=== PATIENT | male | born 1955 | race Caucasian/White ===

== ENCOUNTER 2019-03-14 01:42 | Observation (INO) | payer OTHER, SELFPAY ==
[2019-03-14] VITALS (28 sets, daily range): BP systolic 103–164; BP diastolic 47–96; PULSE 61–91; RESP 13–27; TEMP 36.1–37.2; O2SAT 95–98
[2019-03-14] MEDS: Pantoprazole 40 MG VIAL 80 MG IVP (01:53)
[2019-03-14] MEDS: Normal Saline 1,000 ML 1000 ML IV (01:53)
--- NOTE | 2019-03-14 01:56 | W.ED.GENAD ---
Discharge Plan Disposition Patient Disposition: [facility] INPATIENT Condition: Stable Discharge Details Chief Complaint: GI Bleed Clinical Impression: Acute upper GI bleed Primary Care Provider: Kaylynn,Local ED Provider: Dmitriy Bradshaw Home Meds and New Rx's Prescriptions: No Action metformin 500 mg Tablet 500 mg PO DIRECTED RF: 0 metoprolol succinate 200 mg Tablet Extended Release 24 Hr 200 mg PO DAILY RF: 0 aspirin [Aspir-81] 81 mg Tablet,Delayed Release (Dr/Ec) 81 mg PO DAILY RF: 0 simvastatin 20 mg Tablet 20 mg PO DAILY RF: 0 metformin 1,000 mg Tablet 1,000 mg PO BID RF: 0 valsartan 160 mg Tablet 160 mg PO DAILY RF: 0 Januvia 100 mg Tablet 100 mg PO DAILY RF: 0 Lantus Solostar U-100 Insulin 100 unit/mL (3 mL) Insulin Pen 25 unit SUBCUT DAILY RF: 0 Medical Decision Making 63 yo male with hx of DM, htn, hld, on aspirin, who comes in with chief complaint of vomit of bright red blood. Denies any chest pain, abdominal pain, shortness of breath and no prior hx. No prior hx of known varices and has no stigmata on exam of liver disease. States that he woke up with vomit of blood x2 and as of now has no nausea. Will obtain lab work and monitor and administer ppi pt remains stable, HR of 70 bp 120/72 and labs reassuring. Spoke with Dr. Petersen who accepts for admission to the floor. Pt has not had any vomit of blood here. Differential Diagnosis Differential Diagnosis: varices, gastritis, ulcer Lab Data Lab results reviewed: Yes I reviewed the patient's lab results. HPI General Mode of arrival: EMS. Date/Time Provider Initiated Documentation: 03/14/19 01:51. Limitations to Documentation: no limitations. Information obtained by: patient. History of Present Illness 63 year old M presents to the emergency department with the chief complaint of hematemesis, described as moderate, Patient started experiencing this hour(s) (2) and it has been now resolved. No relieving factors improve symptom(s), No exacerbating factors reported . Patient notes no other symptoms.. Patient did receive the following treatments prior to arrival, none Related Data Home Medications Medication Instructions Recorded Confirmed aspirin [Aspir-81] 81 mg PO DAILY 03/14/19 03/14/19 insulin glargine [Lantus Solostar 25 unit SUBCUT DAILY 03/14/19 03/14/19 U-100 Insulin] metformin 1,000 mg PO BID 03/14/19 03/14/19 metformin 500 mg PO DIRECTED 03/14/19 03/14/19 metoprolol succinate 200 mg PO DAILY 03/14/19 03/14/19 simvastatin 20 mg PO DAILY 03/14/19 03/14/19 sitagliptin [Januvia] 100 mg PO DAILY 03/14/19 03/14/19 valsartan 160 mg PO DAILY 03/14/19 03/14/19 Allergies Allergy/AdvReac Type Severity Reaction Status Date / Time No Known Allergies Allergy Unverified 03/14/19 01:45 General Stated Complaint: GI Bleed KASIA: 2 Review of Systems All systems reviewed & are unremarkable except as noted in HPI and below Constitutional Constitutional: Denies chills, Denies fever(s) and Denies weakness Cardiovascular Cardiovascular: Denies chest pain and Denies dyspnea Respiratory Respiratory: Denies cough and Denies dyspnea Gastrointestinal Gastrointestinal: Denies abdominal pain, Denies nausea and Denies vomiting Musculoskeletal Musculoskeletal: Denies joint swelling Neurologic Neurologic: Denies weakness PFSH Social History Smoking/Tobacco Use Status: Former Tobacco Use Alcohol Intake: former Drug use: Never Substance use type: does not use Do you feel safe at home: Yes Do you feel safe in your relationship?: Yes Exam Const General: no acute distress Orientation: alert HENMT Head: normal to inspection Ears: external ears normal General nose exam: external nose normal Mouth: moist mucous membranes Eyes General: appearance normal, both eyes and all related structures Neck Neck: normal visual inspection Resp Effort & Inspection: normal respiratory effort and able to speak in complete sentences Cardio Rate: regular rate GI Palpation: soft Skin General skin exam: no rashes or lesions noted Neuro General: alert and oriented x3 Extrem General: normal to inspection Psych Mental Status: mental status grossly normal Course Vital Signs Vital signs: Vital Signs Temperature 36.7 C 03/14/19 01:42 Pulse 66 03/14/19 01:42 Respiratory Rate 16 03/14/19 01:42 Pulse Oximetry 97 03/14/19 01:42 Temperature 36.7 C 03/14/19 01:42 Temperature Source Temporal Artery Scan 03/14/19 01:42 Pulse 66 03/14/19 01:42 Respiratory Rate 16 03/14/19 01:42 Respiratory Effort Non-Labored 03/14/19 01:42 Blood Pressure Position Sitting 03/14/19 01:42 Pulse Oximetry 97 03/14/19 01:42 Oxygen Delivery Method Room Air 03/14/19 01:42 Oxygen Flow Rate 0 03/14/19 01:42 Pain Level 0 03/14/19 01:42
[2019-03-14 02:00] LABS: Abs Immature Grans 0.02 k/cumm (0.0-0.09); Absolute Basophil Count 0.02 k/cumm (0.0-0.2); Absolute Eosinophil Count 0.17 k/cumm (0.0-0.7); Absolute Lymphocyte Count 1.31 k/cumm (1.2-3.4); Absolute Monocyte Count 0.54 k/cumm (0.11-0.7); Basophils % 0.3; Eosinophils % 2.7; HCT 37.3 % (40.0-50.0); HGB 12.7 g/dL (13.5-17.5); Immature Grans % 0.3; Lymphocytes % 20.9; Mean Corpuscular Hemoglobin 31.4 pg (27.0-33.0); Mean Corpuscular Volume 92.1 fL (80-95); Mean Platelet Volume 12.5 fL (8.0-11.0); Monocytes % 8.6; Neutrophils % 67.2; Platelet Count 102 x1000/uL (130-400); RBC 4.05 m/cumm (4.50-6.00); White Blood Cell Count 6.26 k/cumm (4.4-10.8)
[2019-03-14] MEDS: Normal Saline 100 ML 200 ML (02:05)
[2019-03-14 02:17] LABS: INR 1.2 (0.9-1.1); PTT Activated 23.1 sec (21.0-31.4); Prothrombin Time 12.3 sec (9.3-11.0)
[2019-03-14 02:19] LABS: ALT 35 U/L (16-63); AST 31 U/L (15-37); Alkaline Phosphatase 180 U/L (46-116); BUN 25 mg/dL (7-18); Bilirubin, Direct 0.13 mg/dL (0.00-0.20); Bilirubin, Total 0.4 mg/dL (0.2-1.0); CREATININE 1.21 mg/dL (0.70-1.30); Calcium 8.3 mg/dL (8.5-10.1); Chloride 105 mmol/L (98-107); ETHANOL BLOOD < 3.0 mg/dL (<3); Glucose 242 mg/dL (74-106); Lipase 378 U/L (73-393); Potassium 4.4 mmol/L (3.5-5.1); Sodium 141 mmol/L (136-145); Total Protein 6.8 g/dL (6.4-8.2)
[2019-03-14] MEDS: Normal Saline 1,000 ML 150 ML IV ×2 (03:36→10:34)
[2019-03-14] MEDS: Normal Saline Flush 10 ML SYR IVP ×2 (03:36→09:19)
--- NOTE | 2019-03-14 05:42 | W.PM.HP.N ---
Date of service: 03/14/19 Time of Service: 05:42 Assessment and Plan Assessment and plan (1) Upper GI bleed: Status: Acute Assessment and plan: Upper GI bleed. ASA/NSAIDs likely culprit. At this point patient appears hemodynamically stable. Will continue to monitor clinically, maintain off NSAIDs, continue PPI. Will need EGD but can be done as outpatient if remains stable; if deteriorates will do more urgently. I do note slight elevation in INR (doubtfully playing any role here) along with low albumin, suggesting degree of synthetic dysfunction. This could be worked up further. Will hold diabetic meds until taking PO. History of Present Illness History of Present Illness Chief Complaint: hematemesis Narrative: 63 male on ASA prophylaxis and also started taking Advill 200 qid about one mon th ago for chronic leg pain -- comes in with several episodes of painless hemetemesis last night, each preceded by nausea. Hematocrit 37 (no priors), platelet 102 and INR 1.2. Given PPI, placed NPO. No further episodes since. At present denises nausea or nabdominal pain. No melena. no EtOH. Review of Systems All systems reviewed & are unremarkable except as noted in HPI and below PFSH Social History Smoking/Tobacco Use Status: Former Tobacco Use Alcohol Intake: former Drug use: Never Substance use type: does not use Do you feel safe at home: Yes Do you feel safe in your relationship?: Yes Meds Home Medications and Allergies Home Medications Medication Instructions Recorded Confirmed Type aspirin [Aspir-81] 81 mg PO DAILY 03/14/19 03/14/19 History insulin glargine [Lantus Solostar 25 unit SUBCUT DAILY 03/14/19 03/14/19 History U-100 Insulin] metformin 1,000 mg PO BID 03/14/19 03/14/19 History metformin 500 mg PO DIRECTED 03/14/19 03/14/19 History metoprolol succinate 200 mg PO DAILY 03/14/19 03/14/19 History simvastatin 20 mg PO DAILY 03/14/19 03/14/19 History sitagliptin [Januvia] 100 mg PO DAILY 03/14/19 03/14/19 History valsartan 160 mg PO DAILY 03/14/19 03/14/19 History Allergies Allergy/AdvReac Type Severity Reaction Status Date / Time No Known Allergies Allergy Unverified 03/14/19 01:45 Exam Narrative Exam Narrative: 114/64, 70, 20, 36.1. HEENT AT/NC; neck supple; lungs clear; heart RRR; abdomen soft and NT; /rectal deferred; extremities trace pedal edema; neuro Ox3, moves all 4s. Results Labs Result diagrams: 03/14/19 01:45 03/14/19 01:45 Labs: Laboratory Results - last 24 hr 03/14/19 03/14/19 03/14/19 01:45 01:45 01:45 WBC 6.26 RBC 4.05 L Hgb 12.7 L Hct 37.3 L MCV 92.1 MCH 31.4 MCHC 34.0 RDW 14.0 Plt Count 102 L MPV 12.5 H Immature Gran % 0.3 Neutrophils % 67.2 Lymphocytes % 20.9 Monocytes % 8.6 Eosinophils % 2.7 Basophils % 0.3 Absolute Neutrophils 4.20 Absolute Lymphocytes 1.31 Absolute Monocytes 0.54 Absolute Eosinophils 0.17 Absolute Basophils 0.02 PT INR APTT Sodium 141 Potassium 4.4 Chloride 105 Carbon Dioxide 32.0 Anion Gap 4.0 BUN 25 H Creatinine 1.21 Estimated GFR/1.73 m2 >= 60.00 Glucose 242 H Lactate 1.0 Calcium 8.3 L Total Bilirubin 0.4 Conjugated Bilirubin 0.13 AST 31 ALT 35 Alkaline Phosphatase 180 H Total Protein 6.8 Albumin 3.0 L Lipase 378 Ethyl Alcohol < 3.0 Patient ABO/Rh Antibody Screen 03/14/19 03/14/19 01:45 01:45 WBC RBC Hgb Hct MCV MCH MCHC RDW Plt Count MPV Immature Gran % Neutrophils % Lymphocytes % Monocytes % Eosinophils % Basophils % Absolute Neutrophils Absolute Lymphocytes Absolute Monocytes Absolute Eosinophils Absolute Basophils PT 12.3 H INR 1.2 H APTT 23.1 Sodium Potassium Chloride Carbon Dioxide Anion Gap BUN Creatinine Estimated GFR/1.73 m2 Glucose Lactate Calcium Total Bilirubin Conjugated Bilirubin AST ALT Alkaline Phosphatase Total Protein Albumin Lipase Ethyl Alcohol Patient ABO/Rh O Negative Antibody Screen Negative Last Vital Signs Temp 36.1 C L 03/14/19 03:43 Pulse 70 03/14/19 03:43 Resp 20 03/14/19 03:43 BP 114/64 03/14/19 03:43 Pulse Ox 95 03/14/19 03:43
[2019-03-14 07:32] LABS: Abs Immature Grans 0.01 k/cumm (0.0-0.09); Absolute Basophil Count 0.01 k/cumm (0.0-0.2); Absolute Eosinophil Count 0.06 k/cumm (0.0-0.7); Absolute Lymphocyte Count 0.85 k/cumm (1.2-3.4); Absolute Monocyte Count 0.32 k/cumm (0.11-0.7); Absolute Neutrophil Count 4.05 k/cumm (1.2-6.7); Basophils % 0.2; Eosinophils % 1.1; HCT 34.2 % (40.0-50.0); HGB 11.3 g/dL (13.5-17.5); Immature Grans % 0.2; Mean Corpuscular Hemoglobin 30.6 pg (27.0-33.0); Mean Corpuscular Volume 92.7 fL (80-95); Mean Platelet Volume 13.2 fL (8.0-11.0); Neutrophils % 76.5; RBC 3.69 m/cumm (4.50-6.00)
[2019-03-14 07:48] LABS: Diff Comment Diff Reviewed; Platelet Count 96 x1000/uL (130-400); RBC Morphology Normal
[2019-03-14] MEDS: Metoprolol CR 100 MG TABCR 200 MG PO (09:20)
[2019-03-14] MEDS: Pantoprazole 40 MG VIAL IVP (09:20)
[2019-03-14] MEDS: Simvastatin 20 MG TAB PO (09:20)
--- NOTE | 2019-03-14 11:09 | INITIAL_ITS ---
- If Service Date Differs Date of service: 03/14/19 Time of Service: 11:09 Care Management Initial Assess REASON FOR HOSPITALIZATION:: Upper GI Bleed PAST MEDICAL HISTORY/PAST SURGICAL HISTORY:: No medical history noted due to patient not being local. PREVIOUS FUNCTIONAL STATUS/SOCIAL/FAMILY SUPPORTS:: Marco A lives in [place], [place] with two friends who adopted him after his . 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 He is planning on building a house in [facility] for [place] term, as he is originally from the area. He enjoys snowmobiling and is hoping for more snow this winter. His friends have a camp at [facility] where they stay weekends and holidays. He is independent at baseline. CURRENT FUNCTIONAL STATUS:: Marco A was sitting up in bed when CM met with him. He was pleasant and cheerful in conversation. He stated that he was feeling much better and was wondering if he would have to stay another night. Per MD, he will be monitored overnight and may discharge home tomorrow if he remains stable. CM will continue to follow. ADVANCE DIRECTIVES:: None on file. Has patient been provided with information about the portal?: No Did the patient sign up for the portal?: No CODE STATUS:: Full Code INSURANCE COVERAGE / FINANCIAL ISSUES:: [facility] CURRENT HOME/COMMUNITY SERVICES/EQUIPMENT:: Marco A currently has no community services or equipment. PRIMARY CARE PHYSICIAN:: No local PCP POTENTIAL DISCHARGE NEEDS:: Evaluation for further needs, follow up appointments PATIENT/FAMILY EDUCATION NEEDS:: Review discharge instructions regarding medications, discussion of self care needs including Ask Me Three ANTICIPATED BARRIERS TO DISCHARGE:: None identified at this time. TRANSPORTATION:: Marco A's friend, Malinda will drive him home via private vehicle when ready. PLAN:: Anticipate Marco A will return home when medically cleared with no additional services. His friend will drive him home via private vehicle. He will follow up with his local PCP, as recommended. CM will continue to follow.
[2019-03-14 15:21] LABS: HCT 34.1 % (40.0-50.0); HGB 11.4 g/dL (13.5-17.5)
--- NOTE | 2019-03-14 18:15 | W.PM.PROGNOT ---
Date of Service Date of service: 03/14/19 Time of Service: 18:15 Assessment and Plan Assessment and plan (1) Upper GI bleed: Status: Acute Assessment and plan: This may be an upper GI bleed related to NSAID use. The aspirin and Advil have been held. He is on PPI therapy. He is advanced to clear liquids. We will continue to monitor his hemoglobin closely. At this point is not clear that this is an actual bleeding event. The small drop in hemoglobin could have been hemodilution. He does not appear to have a coagulopathy. We will continue to monitor for any transition to hematochezia. Possible discharge tomorrow with outpatient work-up for upper endoscopy. Subjective Subjective Interval history since last seen: Patient was admitted overnight because of 2 episodes of what appeared to be hematemesis. He had had lasagna for his evening meal. During the night he vomited twice some reddish material. He had his friends transport him to the hospital. He has had no further vomiting at all. He has a good appetite. He is transition to clear liquids without difficulty. He has had his hemoglobin followed serially throughout the day today without significant drop. His vitals have been stable. Exam Narrative Exam Narrative: On exam he appeared in no distress. He had clear lungs bilaterally. Heart sounds were regular. He has a very large abdomen but is overall soft and nontender to palpation. His lower extremities showed no significant edema. Labs today showed his hemoglobin 12.7-11.32 - 11.4. Objective Objective Clinical Data: Abnormal lab results 03/14/19 03/14/19 03/14/19 Range/Units 01:45 01:45 01:45 RBC 4.05 L (4.50-6.00) m/cumm Hgb 12.7 L (13.5-17.5) g/dL Hct 37.3 L (40.0-50.0) % Plt Count 102 L (130-400) x1000/uL MPV 12.5 H (8.0-11.0) fL Absolute Lymphocytes (1.2-3.4) k/cumm PT 12.3 H (9.3-11.0) sec INR 1.2 H (0.9-1.1) BUN 25 H (7-18) mg/dL Glucose 242 H (74-106) mg/dL Calcium 8.3 L (8.5-10.1) mg/dL Alkaline Phosphatase 180 H (46-116) U/L Albumin 3.0 L (3.4-5.0) g/dL 03/14/19 03/14/19 Range/Units 06:14 15:13 RBC 3.69 L (4.50-6.00) m/cumm Hgb 11.3 L 11.4 L (13.5-17.5) g/dL Hct 34.2 L 34.1 L (40.0-50.0) % Plt Count 96 L (130-400) x1000/uL MPV 13.2 H (8.0-11.0) fL Absolute Lymphocytes 0.85 L (1.2-3.4) k/cumm PT (9.3-11.0) sec INR (0.9-1.1) BUN (7-18) mg/dL Glucose (74-106) mg/dL Calcium (8.5-10.1) mg/dL Alkaline Phosphatase (46-116) U/L Albumin (3.4-5.0) g/dL Vital Signs Temperature 37.2 C 03/14/19 15:53 Temperature Source Tympanic 03/14/19 15:53 Pulse 66 03/14/19 15:53 Pulse Rhythm Regular 03/14/19 09:20 Pulse 72 03/14/19 03:01 Respiratory Rate 18 03/14/19 15:53 Respiratory Effort Non-Labored 03/14/19 09:20 Respiratory Depth Normal 03/14/19 09:20 Respiratory Pattern Normal 03/14/19 09:20 Blood Pressure 143/87 H 03/14/19 15:53 Blood Pressure Mean 71 03/14/19 03:01 Blood Pressure Position Sitting 03/14/19 01:42 Pulse Oximetry 95 03/14/19 15:53 Oxygen Delivery Method Room Air 03/14/19 15:53 Oxygen Flow Rate 0 03/14/19 15:53 Pain Level 0 03/14/19 15:53 Intake & Output 03/13/19 03/14/19 03/14/19 23:59 11:59 23:59 Intake Total 1000 / 1732.5 732.5 / 1732.5 Output Total 350 / 350 Balance 650 / 1382.5 732.5 / 1382.5 Weight 131.1 kg Intake: IV 1000 / 1252.5 252.5 / 1252.5 Oral 480 / 480 Output: Urine 350 / 350 Other: Urine Color Light Renee Urine Appearance Clear Urine Odor Strong Emesis Description Bright Red Blood Voiding Methods Toilet Urinal Laboratory Results WBC 5.30 k/cumm (4.4-10.8) 03/14/19 06:14 RBC 3.69 m/cumm (4.50-6.00) L 03/14/19 06:14 Hgb 11.4 g/dL (13.5-17.5) L 03/14/19 15:13 Hct 34.1 % (40.0-50.0) L 03/14/19 15:13 MCV 92.7 fL (80-95) 03/14/19 06:14 MCH 30.6 pg (27.0-33.0) 03/14/19 06:14 MCHC 33.0 g/dL (32.0-36.0) 03/14/19 06:14 RDW 14.0 % (11.8-14.1) 03/14/19 06:14 Plt Count 96 x1000/uL (130-400) L 03/14/19 06:14 MPV 13.2 fL (8.0-11.0) H 03/14/19 06:14 Immature Gran % 0.2 03/14/19 06:14 Neutrophils % 76.5 03/14/19 06:14 Lymphocytes % 16.0 03/14/19 06:14 Monocytes % 6.0 03/14/19 06:14 Eosinophils % 1.1 03/14/19 06:14 Basophils % 0.2 03/14/19 06:14 Absolute Neutrophils 4.05 k/cumm (1.2-6.7) 03/14/19 06:14 Absolute Lymphocytes 0.85 k/cumm (1.2-3.4) L 03/14/19 06:14 Absolute Monocytes 0.32 k/cumm (0.11-0.7) 03/14/19 06:14 Absolute Eosinophils 0.06 k/cumm (0.0-0.7) 03/14/19 06:14 Absolute Basophils 0.01 k/cumm (0.0-0.2) 03/14/19 06:14 Differential Comment Diff reviewed 03/14/19 06:14 RBC Morphology Normal 03/14/19 06:14 PT 12.3 sec (9.3-11.0) H 03/14/19 01:45 INR 1.2 (0.9-1.1) H 03/14/19 01:45 APTT 23.1 sec (21.0-31.4) 03/14/19 01:45 Sodium 141 mmol/L (136-145) 03/14/19 01:45 Potassium 4.4 mmol/L (3.5-5.1) 03/14/19 01:45 Chloride 105 mmol/L (98-107) 03/14/19 01:45 Carbon Dioxide 32.0 mmol/L (21.0-32.0) 03/14/19 01:45 Anion Gap 4.0 mmol/L (3-11) 03/14/19 01:45 BUN 25 mg/dL (7-18) H 03/14/19 01:45 Creatinine 1.21 mg/dL (0.70-1.30) 03/14/19 01:45 Estimated GFR/1.73 m2 >= 60.00 (mL/min/1.73m2) 03/14/19 01:45 Glucose 242 mg/dL (74-106) H 03/14/19 01:45 Lactate 1.0 mmol/L (0.6-1.4) 03/14/19 01:45 Calcium 8.3 mg/dL (8.5-10.1) L 03/14/19 01:45 Total Bilirubin 0.4 mg/dL (0.2-1.0) 03/14/19 01:45 Conjugated Bilirubin 0.13 mg/dL (0.00-0.20) 03/14/19 01:45 AST 31 U/L (15-37) 03/14/19 01:45 ALT 35 U/L (16-63) 03/14/19 01:45 Alkaline Phosphatase 180 U/L (46-116) H 03/14/19 01:45 Total Protein 6.8 g/dL (6.4-8.2) 03/14/19 01:45 Albumin 3.0 g/dL (3.4-5.0) L 03/14/19 01:45 Lipase 378 U/L (73-393) 03/14/19 01:45 Ethyl Alcohol < 3.0 mg/dL (<3) 03/14/19 01:45 Patient ABO/Rh O Negative 03/14/19 01:45 Antibody Screen Negative 03/14/19 01:45
[2019-03-14] MEDS: Normal Saline 1,000 ML 100 ML IV (18:51)
[2019-03-15 03:29] VITALS: BP 157/74; PULSE 61; RESP 16; TEMP 37; O2SAT 97
[2019-03-15] MEDS: Normal Saline 1,000 ML 100 ML IV (04:02)
[2019-03-15 06:52] LABS: HCT 34.8 % (40.0-50.0); HGB 11.8 g/dL (13.5-17.5); Mean Corp. HGB Concentration 33.9 g/dL (32.0-36.0); Mean Corpuscular Hemoglobin 31.1 pg (27.0-33.0); Mean Corpuscular Volume 91.6 fL (80-95); Mean Platelet Volume 12.8 fL (8.0-11.0); RBC Distribution Width 14.2 % (11.8-14.1); White Blood Cell Count 4.79 k/cumm (4.4-10.8)
[2019-03-15 07:00] LABS: BUN 19 mg/dL (7-18); CREATININE 0.78 mg/dL (0.70-1.30); Calcium 8.5 mg/dL (8.5-10.1); Chloride 107 mmol/L (98-107); Glucose 193 mg/dL (74-106); Sodium 143 mmol/L (136-145)
[2019-03-15 07:27] VITALS: BP 132/73; PULSE 57; RESP 19; TEMP 36.6; O2SAT 97
[2019-03-15 07:27] LABS: Platelet Count 90 x1000/uL (130-400)
[2019-03-15 07:45] VITALS: PULSE 59
[2019-03-15] MEDS: Normal Saline Flush 10 ML SYR IVP (08:16)
[2019-03-15] MEDS: Pantoprazole 40 MG VIAL IVP (08:16)
[2019-03-15] MEDS: Simvastatin 20 MG TAB PO (08:16)
[2019-03-15] MEDS: Insulin Aspart 300 UNITS/3 ML PEN SC ×2 (08:27→11:53)
[2019-03-15] MEDS: Metoprolol CR 100 MG TABCR 200 MG PO (08:29)
[2019-03-15 10:30] VITALS: PULSE 64
--- NOTE | 2019-03-15 14:27 | PDOC.CMDIS ---
- If Service Date Differs Date of service: 03/15/19 Time of Service: 14:27 LACE Index Scoring Tool - Questions: Length of Stay (in days): 2 Acuity (Admit via E.D.?): Yes E.D. Visits: 1 - Answers: Total Score: 6 Risk of Readmission: Low Risk Care Management Discharge Reason for Hospitalization: Upper GI Bleed Discharge Plan: Marco A will return home with no additional services at this time. He will follow up with his PCP as recommended. His friends will drive him home via private vehicle. He is agreeable to the plan. Patient/Family Education Needs: Review discharge instructions, discussion of self care needs including Ask Me Three
--- NOTE | 2019-03-15 16:23 | DSE_ITS ---
Date of service: 03/15/19 Time of Service: 16:24 DS: Diagnosis Discharge Diagnosis (1) Upper GI bleed: Status: Acute Asessment and Plan: Patient presented with 2 episodes of what appeared to be hematemesis. Serial hemoglobin showed no significant drop. He never developed overt evidence of bleeding per rectum. He did not have upper endoscopy during this hospitalization. Recommend continued PPI therapy and upper endoscopy done electively as an outpatient. Discharge Plan Disposition Patient Disposition: HOME Condition: Stable Discharge Details Chief Complaint: GI Bleed Clinical Impression: Acute upper GI bleed Reason For Visit: UPPER GI BLEED Admit Date/Time: 03/14/19 02:46 Admit Provider: Uriel Petersen Attending Provider: Uriel Petersen [facility] Dmitriy Brad[facility] Hospital Course Hospital Course: 63-year-old man who came in with at least 2 episodes of vomiting of bright red blood. He [place] staying at a [place] locally with some friends. They had [employer] for dinner. He felt nauseous and then vomited up red material. He said it smelled like blood. After the second episode he had his friends bring him to the emergency room. In the emergency room his vitals were stable his initial hemoglobin was 12.7. He gave a history of having aspirin and Advil for some leg pain recently. NSAID medications were held and he was started on PPI therapy. His hemoglobin was trended and did drop to 11.3, then 11.4, then 11.8 at the time of discharge. He had no further nausea or vomiting. He is discharged for further follow-up with gastroenterology as an outpatient. Avoid NSAID medications. Continue PPI therapy. Home Meds and New Rx's Prescriptions: New Protonix [address] for susp in packet 40 mg PO DAILY Qty: 30 RF: 3 Discontinued aspirin [Aspir-81] 81 mg Tablet,Delayed Release (Dr/Ec) 81 mg PO DAILY RF: 0 No Action metformin 500 mg Tablet 500 mg PO DIRECTED RF: 0 metoprolol succinate 200 mg Tablet Extended Release 24 Hr 200 mg PO DAILY RF: 0 simvastatin 20 mg Tablet 20 mg PO DAILY RF: 0 metformin 1,000 mg Tablet 1,000 mg PO BID RF: 0 valsartan 160 mg Tablet 160 mg PO DAILY RF: 0 Januvia 100 mg Tablet 100 mg PO DAILY RF: 0 Lantus Solostar U-100 Insulin 100 unit/mL (3 mL) Insulin Pen 25 unit SUBCUT QHS RF: 0 Discharge Instructions Instructions: Gastrointestinal Bleeding (DC) Stand Alone Forms: Nursing Discharge Form Referrals: Dr Augustus Avila [Other] (Please call the office to schedule a follow up appointment) [place] [place] (follow up as [place]) Activity:: Activity as Tolerated Equipment/Supplies:: No Equipment Needed Diet:: As Tolerated Discharge Orders Discharge Orders: Discharge Order (Routine); Ordered 03/15/19 Ordered By: Dmitriy Bradford Discharge Data Discharge Date/Time-TO BE ENTERED AT DEPARTURE: 03/15/19 12:40 DS: Summary Status at Discharge Functional status at discharge: independent ambulation Overall status at discharge: patient is back to baseline Mental Status: mental status grossly normal Speech and Movement: speech and movement normal Mood: congruent mood Affect: normal affect Time Spent with Patient providing and/or coordinating discharge services: Less than 30 minutes Exam Narrative Exam Narrative: Patient seen at the day of discharge to be sitting up on the side of the bed in good spirits. He is tolerating a regular diet. He has no abdominal discomfort. Psych Mental Status: mental status grossly normal Speech and Movement: speech and movement normal Mood: congruent mood Affect: normal affect DS: Data Vitals/I&O Vitals and I&O: Vital Signs Temperature 36.6 C 03/15/19 07:27 Temperature Source Tympanic 03/15/19 07:27 Pulse 64 03/15/19 10:30 Pulse Rhythm Regular 03/15/19 08:31 Pulse 72 03/14/19 03:01 Respiratory Rate 19 03/15/19 07:27 Respiratory Effort 03/15/19 08:31 Respiratory Depth Normal 03/15/19 08:31 Respiratory Pattern Normal 03/15/19 08:31 Blood Pressure 132/73 03/15/19 07:27 Blood Pressure Mean 71 03/14/19 03:01 Blood Pressure Position Sitting 03/14/19 01:42 Pulse Oximetry 97 03/15/19 07:27 Oxygen Delivery Method Room Air 03/15/19 07:27 Oxygen Flow Rate 0 03/15/19 07:27 Pain Level 0 03/15/19 07:27 Comment 03/14/19 19:30 Intake & Output 03/14/19 03/15/19 03/15/19 23:59 11:59 23:59 Intake Total 2772.5 / 3772.5 1408.333 / 1408.333 Balance 2772.5 / 3422.5 1408.333 / 1408.333 Intake: IV 1572.5 / 2572.5 918.333 / 918.333 Oral 1200 / 1200 490 / 490 Other: Urine Appearance Clear Comment voids independently VOIDS INDEP. Stool Characteristics Formed Voiding Methods Toilet Data Completed and Pending Labs on day of discharge: Labs from last 24 hours 03/15/19 03/15/19 06:30 06:30 WBC 4.79 RBC 3.80 L Hgb 11.8 L Hct 34.8 L MCV 91.6 MCH 31.1 MCHC 33.9 RDW 14.2 H Plt Count 90 L MPV 12.8 H Sodium 143 Potassium 4.0 Chloride 107 Carbon Dioxide 29.0 Anion Gap 7.0 BUN 19 H D Creatinine 0.78 Estimated GFR/1.73 m2 >= 60.00 Glucose 193 H Calcium 8.5 PFSH Social History Smoking/Tobacco Use Status: Former Tobacco Use Alcohol Intake: former Drug use: Never Substance use type: does not use Do you feel safe at home: Yes Do you feel safe in your relationship?: Yes
== END 2019-03-15 12:40 | disposition home or self-care (01) | DRG 379 ==
LOC: ER 02:57 → MS 04:23
PROVIDERS: Admitting Provider General Practice; Emergency Provider Emergency Medicine; Visit Provider Family Medicine
DX: K92.0 Hematemesis (principal); E11.9 Type 2 diabetes mellitus without complications; Z79.4 Long term (current) use of insulin
CPT/HCPCS: 36415; 80048; 80053; 83690; 85027; 86850; 86900; 86901; 96361; 96374; 96375; 99222; 99232; 99238; 99285; 80320; 82248; 83605; 85014; 85018; 85025; 85610; 85730; 99217; 99219; 99284

== ENCOUNTER 2020-11-04 09:21 | Outpatient (REF) | payer MEDICARE, SELFPAY ==
[2020-11-04 14:01] LABS: Bilirubin Negative (Negative); Blood Negative (Negative); Clarity Clear (Clear); Glucose Negative (Negative); Ketones Negative (Negative); Leukocyte Esterase Trace (Negative); Nitrite Negative (Negative); Specific Gravity 1.015 (1.005-1.025); Urobilinogen 0.2 EU/dL (Up TO 0.2)
[2020-11-04 14:11] LABS: Bacteria Rare HPF (Negative); C & S Indicated? Yes; Crystals Negative HPF (Negative); Epithelial Cells Negative HPF (Negative); Mucus Negative (Negative); Other Cells Rare Transitional (Negative); RBC 0-2 HPF (0-2); WBC >50 HPF (0-5)
== END 2020-11-04 09:22 | disposition home or self-care (01) ==
LOC: LBN 09:21
PROVIDERS: Visit Provider Urology
DX: C67.9 Malignant neoplasm of bladder, unspecified (principal)
CPT/HCPCS: 81003; 81015; 87086

== ENCOUNTER 2020-11-11 07:19 | Outpatient (REF) | payer MEDICARE, SELFPAY ==
[2020-11-11 14:15] LABS: Bilirubin Negative (Negative); Blood Small (Negative); Clarity Clear (Clear); Glucose 500 mg/dL (Negative); Ketones Negative (Negative); Nitrite Negative (Negative); Specific Gravity 1.025 (1.005-1.025); Urobilinogen 0.2 EU/dL (Up TO 0.2)
[2020-11-11 14:22] LABS: Leukocyte Esterase Moderate (Negative)
[2020-11-11 14:24] LABS: Epithelial Cells Negative HPF (Negative); RBC 20-50 HPF (0-2); WBC >50 HPF (0-5)
[2020-11-11 14:25] LABS: Bacteria Few HPF (Negative); C & S Indicated? Yes; Casts Negative LPF (Negative); Crystals Negative HPF (Negative); Mucus Negative (Negative)
== END 2020-11-11 07:20 | disposition home or self-care (01) ==
LOC: LBN 07:19
PROVIDERS: Visit Provider Urology
DX: C67.9 Malignant neoplasm of bladder, unspecified (principal)
CPT/HCPCS: 81003; 81015; 87086

== ENCOUNTER 2020-11-18 09:41 | Outpatient (REF) | payer MEDICARE, SELFPAY ==
[2020-11-18 11:07] LABS: Bilirubin Negative (Negative); Blood Trace-intact (Negative); Clarity Clear (Clear); Glucose Negative (Negative); Ketones Negative (Negative); Leukocyte Esterase Trace (Negative); Nitrite Negative (Negative); Specific Gravity 1.015 (1.005-1.025); Urobilinogen 0.2 EU/dL (Up TO 0.2); pH 5.5 (5-8)
[2020-11-18 11:14] LABS: Bacteria Rare HPF (Negative); C & S Indicated? Yes; Casts Negative LPF (Negative); Crystals Negative HPF (Negative); Epithelial Cells Rare HPF (Negative); Mucus Trace (Negative); RBC 0-2 HPF (0-2)
== END 2020-11-18 09:42 | disposition home or self-care (01) ==
LOC: NCHCN 09:41
PROVIDERS: Visit Provider Urology
DX: C67.9 Malignant neoplasm of bladder, unspecified (principal)
CPT/HCPCS: 81003; 81015; 87086

== ENCOUNTER 2020-12-02 18:25 | Outpatient (REF) | payer MEDICARE, SELFPAY ==
[2020-12-02 19:12] LABS: Bilirubin Negative (Negative); Blood Small (Negative); Clarity Cloudy (Clear); Glucose Negative (Negative); Ketones Negative (Negative); Leukocyte Esterase Large (Negative); Nitrite Negative (Negative); Specific Gravity 1.015 (1.005-1.025); Urobilinogen 0.2 EU/dL (Up TO 0.2); pH 5.5 (5-8)
[2020-12-02 19:26] LABS: Bacteria Many HPF (Negative); Crystals Negative HPF (Negative); Epithelial Cells Few HPF (Negative); WBC >50 HPF (0-5)
[2020-12-02 19:27] LABS: C & S Indicated? Yes; Casts Negative LPF (Negative); Mucus Negative (Negative)
== END 2020-12-02 18:26 | disposition home or self-care (01) ==
LOC: LBN 18:25
PROVIDERS: Visit Provider Urology
DX: C67.9 Malignant neoplasm of bladder, unspecified (principal)
CPT/HCPCS: 87077; 81003; 81015; 87086

== ENCOUNTER 2020-12-09 15:00 | Outpatient (REF) | payer MEDICARE, SELFPAY ==
[2020-12-09 13:50] LABS: Bilirubin Negative (Negative); Blood Negative (Negative); Clarity Sl Cloudy (Clear); Glucose Negative (Negative); Ketones Negative (Negative); Leukocyte Esterase Moderate (Negative); Nitrite Negative (Negative); Specific Gravity 1.015 (1.005-1.025); Urobilinogen 0.2 EU/dL (Up TO 0.2); pH 5.5 (5-8)
[2020-12-09 14:07] LABS: Bacteria Rare HPF (Negative); C & S Indicated? Yes; Casts Negative LPF (Negative); Crystals Negative HPF (Negative); Epithelial Cells Rare HPF (Negative); Mucus Negative (Negative); RBC 0-2 HPF (0-2); WBC >50 HPF (0-5)
== END 2020-12-09 15:01 | disposition home or self-care (01) ==
LOC: NCHCN 15:00
PROVIDERS: Visit Provider Urology
DX: C67.9 Malignant neoplasm of bladder, unspecified (principal)
CPT/HCPCS: 81003; 81015; 87086

== ENCOUNTER 2021-05-12 10:46 | Outpatient (REF) | payer MEDICARE, OTHER, SELFPAY ==
--- NOTE | 2021-05-12 06:45 | PAPNONF_PTH ---
PATIENT: Gladys Nieves LOC: [facility] U#:[id number] AGE/SX: 65/M ROOM: RE05/12/[address]: CARMEN SHOOK : 1955 BED: DIS: 05/12/2021 SPEC #: [id number] RECD: 05/12/21 11:50 STATUS: IVORY REQ #: [id number] TUSHAR: 05/12/21 06:[address]: CARMEN SHOOK [facility] Cytology RECD BY: Abimbola Elena Tissues: 1 - BODY FLUID CYTO(SPUTUM/URINE)[facility] Procedures: BODY FLUID CYTO(URINE/SPUTUM) Comments: [id number] (TOTAL VOLUME = 90 ml) (45 ml URINE & 45 ml CYTOLYT ADDED IN 2 CONTAINERS)
== END 2021-05-12 10:47 | disposition home or self-care (01) ==
LOC: LBN 10:46
PROVIDERS: Visit Provider Urology
DX: C67.9 Malignant neoplasm of bladder, unspecified (principal)
CPT/HCPCS: 88104

== ENCOUNTER 2021-08-08 11:22 | Outpatient (REF) | payer MEDICARE, OTHER, SELFPAY ==
--- NOTE | 2021-08-08 05:30 | PAPNONF_PTH ---
PATIENT: Gladys Nieves LOC: [facility] U#:[id number] AGE/SX: 66/M ROOM: RE08/08/[address]: CARMEN SHOOK : 1955 BED: DIS: 08/08/2021 SPEC #: [id number] RECD: 08/08/21 13:00 STATUS: IVORY REJung #: [id number] TUSHAR: 08/08/21 05:[address]: CARMEN SHOOK DEPT: [facility] Cytology RECD BY: Abimbola Elena ENTERED: 08/08/21 13:00 SP TYPE: PAPRADAMESF RADHA DR: Unknown,Unknown Tissues: 1 - BODY FLUID CYTO(SPUTUM/URINE)[facility] Procedures: BODY FLUID CYTO(URINE/SPUTUM) Comments: (TOTAL VOLUME = 60 ml) (30 ml URINE & 30 ml CYTOLYT ADDED IN 2 CONTAINERS)
== END 2021-08-08 11:23 | disposition home or self-care (01) ==
LOC: LBN 11:22
PROVIDERS: Visit Provider Urology
DX: C67.9 Malignant neoplasm of bladder, unspecified (principal)
CPT/HCPCS: 88104

== ENCOUNTER 2021-11-10 14:50 | Outpatient (REF) | payer MEDICARE, OTHER, SELFPAY ==
--- NOTE | 2021-11-10 07:00 | PAPNONF_PTH ---
PATIENT: Gladys Nieves LOC: [facility] U#:[id number] AGE/SX: 66/M ROOM: RE11/10/[address]: CARMEN SHOOK : 1955 BED: DIS: 11/10/2021 SPEC #: [id number] RECD: 11/10/21 17:34 STATUS: IVORY REQ #: [id number] TUSHAR: 11/10/21 07:[address]: CARMEN SHOOK DEPT: [facility] Cytology RECD BY: Abimbola Elena ENTERED: 11/10/21 17:34 SP TYPE: KRISTAL GARCIA DR: Unknown,Unknown Tissues: 1 - BODY FLUID CYTO(SPUTUM/URINE)[facility] Procedures: BODY FLUID CYTO(URINE/SPUTUM) Comments: [id number] (TOTAL VOLUME = 50 ml) (50 ml URINE & 50 ml CYTOLYT ADDED)
== END 2021-11-10 14:51 | disposition home or self-care (01) ==
LOC: LBN 14:50
PROVIDERS: Visit Provider Urology
DX: C67.4 Malignant neoplasm of posterior wall of bladder (principal)
CPT/HCPCS: 88104

== ENCOUNTER 2022-03-21 10:04 | Outpatient (REF) | payer MEDICARE, OTHER, SELFPAY ==
[2022-03-21 16:20] LABS: ALT 44 U/L (16-63); AST 35 U/L (15-37); Albumin 3.5 g/dL (3.4-5.0); Alkaline Phosphatase 143 U/L (46-116); BUN 18 mg/dL (7-18); Bilirubin, Total 0.6 mg/dL (0.2-1.0); CREATININE 1.3 mg/dL (0.70-1.30); Calcium 8.5 mg/dL (8.5-10.1); Chloride 105 mmol/L (98-107); Creatine Kinase 68 U/L (39-308); Estimated GFR 60.59 (mL/min/1.73m2); Glucose 307 mg/dL (74-106); Potassium 4.8 mmol/L (3.5-5.1); Sodium 138 mmol/L (136-145); TSH (W/Ref FT4) 1.61 uIU/mL (0.36-3.74); Total Protein 7.5 g/dL (6.4-8.2)
[2022-03-21 16:35] LABS: HDL Cholesterol 40 mg/dL (40-60); LDL CHOLESTEROL 61 mg/dL (<100)
[2022-03-21 16:42] LABS: Hemoglobin A1C 7.5 % (<5.7)
== END 2022-03-21 10:05 | disposition home or self-care (01) ==
LOC: NCHCN 10:04
PROVIDERS: Visit Provider Nurse Practitioner Family
DX: I10 Essential (primary) hypertension (principal); E78.00 Pure hypercholesterolemia, unspecified; E11.65 Type 2 diabetes mellitus with hyperglycemia; E66.01 Morbid (severe) obesity due to excess calories
CPT/HCPCS: 80053; 82550; 83721; 83036; 83718; 84443

== ENCOUNTER 2022-04-17 14:54 | Outpatient (CLI) | payer MEDICARE, SELFPAY ==
--- NOTE | 2022-04-17 14:45 | DI.RAD_ITS ---
Exam(s) XR SHOULDER RT COMPLETE 2+V EXAM: XR SHOULDER RT COMPLETE 2+V CLINICAL HISTORY: right shoulder pain. TECHNIQUE: 2D digital imaging was performed of the right shoulder. Images were obtained. AP and axillary views were obtained. COMPARISON: No exams were available for comparison FINDINGS: BONES: No acute fracture is present. No bony destructive lesion is seen. There is mild spurring at th e lateral aspect of the acromion. JOINTS: No dislocation present. SOFT TISSUE: Normal. IMPRESSION: No acute abnormality. DATA REPOSITORY: RADIATION DOSE DELIVERED:
== END 2022-04-17 14:55 | disposition home or self-care (01) ==
LOC: DIORS 14:54
PROVIDERS: PCP Physician Assistant Medical; Referring Provider Physician Assistant Medical; Visit Provider Physician Assistant
DX: M75.101 Unspecified rotator cuff tear or rupture of right shoulder, not specified as traumatic (principal); M19.011 Primary osteoarthritis, right shoulder; R06.02 Shortness of breath
CPT/HCPCS: 99203; 73030

== ENCOUNTER 2022-05-02 11:51 | Outpatient (REF) | payer MEDICARE, SELFPAY ==
--- NOTE | 2022-05-02 06:00 | PAPNONF_PTH ---
PATIENT: Gladys Nieves LOC: [facility] U#:[id number] AGE/SX: 66/M ROOM: RE05/02/[address]: CARMEN SHOOK : 1955 BED: DIS: 05/02/2022 SPEC #: [id number] RECD: 05/02/22 13:06 STATUS: IVORY RE #: [id number] TUSHAR: 05/02/22 06:[address]: CARMEN SHOOK DEPT: [facility] Cytology RECD BY: Abimbola Elena ENTERED: 05/02/22 13:06 SP TYPE: KRISTAL GARCIA DR: Joe Gamboa Tissues: 1 - BODY FLUID CYTO(SPUTUM/URINE)[facility] Procedures: BODY FLUID CYTO(URINE/SPUTUM) Comments: [id number] (TV = 60 ml, 30 ml CYTOLYTE ADDED) (REFRIGERATED)
== END 2022-05-02 11:52 | disposition home or self-care (01) ==
LOC: LBN 11:51
PROVIDERS: PCP Physician Assistant Medical; Visit Provider Urology
DX: C67.9 Malignant neoplasm of bladder, unspecified (principal)
CPT/HCPCS: 88104

== ENCOUNTER 2022-06-07 03:25 | Outpatient (CLI) | payer MEDICARE, SELFPAY ==
--- NOTE | 2022-06-07 06:30 | DI.MRI_ITS ---
Exam(s) MR UPPER JOINT RT WO EXAM: MR UPPER JOINT RT WO CLINICAL HISTORY: ? rtc tear,ARTHROPATHY,M75.101,M19.011. TECHNIQUE: Multiplanar multisequence MRI was performed. COMPARISON: CR XR SHOULDER RT COMPLETE 2+V from 04/17/2022 FINDINGS: BONES: There is no fracture or contusion pattern. JOINTS: There are degenerative changes in the acromioclavicular joint. The glenohumeral joint is nor mal. TENDONS: Supraspinatus: There is a complete tear of the supraspinatus tendon with retraction almost to the lev el of the acromioclavicular joint. There is superior subluxation of the humeral head. Infraspinatus: Unremarkable. Subscapularis: There is tendinosis of the subscapularis tendon. Teres Minor: Unremarkable. Biceps and [place]: Unremarkable. MUSCLES: Xfmh-dl-pcbgblgy fatty atrophy of the supraspinatus, infraspinatus or teres minor muscles is present. GLENOID LABRUM: Unremarkable on this noncontrast examination. SOFT TISSUES: Unremarkable. LIGAMENTS: Unremarkable. OTHER: There is fluid seen in the subacromial subdeltoid bursa. IMPRESSION: 1. Findings of a complete tear of the supraspinatus tendon with retraction almost to the acromioclavi cular joint. There is subluxation superiorly of the humeral head. 2. Moderate fatty atrophy of the supraspinatus, infraspinatus and teres minor muscles. 3. Tendinosis of the subscapularis tendon. 4. Degenerative changes of the acromioclavicular joint. DATA REPOSITORY:
== END 2022-06-07 03:45 ==
LOC: DI 03:25
PROVIDERS: PCP Physician Assistant Medical; Visit Provider Student in an Organized Health Care Education/Training Program
DX: M75.101 Unspecified rotator cuff tear or rupture of right shoulder, not specified as traumatic (principal); M19.011 Primary osteoarthritis, right shoulder; M25.511 Pain in right shoulder; M75.81 Other shoulder lesions, right shoulder; M25.411 Effusion, right shoulder; S43.081A Other subluxation of right shoulder joint, initial encounter
CPT/HCPCS: 73221

== ENCOUNTER → 2022-06-12 09:48 | Outpatient (BNVA) | payer MEDICARE, SELFPAY | PROVIDERS: PCP Physician Assistant Medical; Referring Provider Physician Assistant Medical; Visit Provider Student in an Organized Health Care Education/Training Program | DX: M75.101 Unspecified rotator cuff tear or rupture of right shoulder, not specified as traumatic (principal); S46.211D Strain of muscle, fascia and tendon of other parts of biceps, right arm, subsequent encounter; X58.XXXD Exposure to other specified factors, subsequent encounter; E11.65 Type 2 diabetes mellitus with hyperglycemia | CPT/HCPCS: 99213 ==

== ENCOUNTER 2022-06-25 12:26 | Outpatient (REF) | payer MEDICARE, SELFPAY ==
[2022-06-25 15:35] LABS: Hemoglobin A1C 7.8 % (<5.7)
== END 2022-06-25 12:27 | disposition home or self-care (01) ==
LOC: NCHCN 12:26
PROVIDERS: PCP Nurse Practitioner Family; Visit Provider Nurse Practitioner Family
DX: E11.65 Type 2 diabetes mellitus with hyperglycemia (principal)
CPT/HCPCS: 83036

== ENCOUNTER 2022-10-23 10:23 | Outpatient (REF) | payer MEDICARE, SELFPAY ==
[2022-10-23 16:04] LABS: HCT 42.9 % (40.0-50.0); HGB 14.3 g/dL (13.5-17.5); MCH 31.2 pg (27.0-33.0); MCHC 33.3 % (32.0-36.0); MCV 94 fL (80-95); MPV 13.6 fL (8.0-11.0); RBC 4.58 10^6/uL (4.36-5.78); RDW 14.1 % (11.8-14.1); RDW-SD 48.5 fL; WBC 4.89 10^3/uL (4.4-10.8)
[2022-10-23 16:21] LABS: ALT 41 U/L (16-63); AST 36 U/L (15-37); Albumin 3.3 g/dL (3.4-5.0); Alkaline Phosphatase 123 U/L (46-116); Anion Gap 6.5 mmol/L (3-11); BUN 22 mg/dL (7-18); Bilirubin, Total 0.8 mg/dL (0.2-1.0); CO2 27.5 mmol/L (21.0-32.0); CREATININE 1.4 mg/dL (0.70-1.30); Calcium 9.2 mg/dL (8.5-10.1); Chloride 101 mmol/L (98-107); Estimated GFR 55.09 (mL/min/1.73m2); Glucose 298 mg/dL (74-106); NT-proBNP 148 pg/mL (<300); Potassium 4.9 mmol/L (3.5-5.1); Sodium 135 mmol/L (136-145); Total Protein 7.5 g/dL (6.4-8.2)
[2022-10-23 16:34] LABS: Platelet Count 89 10^3/uL (130-400)
== END 2022-10-23 10:24 | disposition home or self-care (01) ==
LOC: NCHCN 10:23
PROVIDERS: PCP Nurse Practitioner Family; Visit Provider Nurse Practitioner Family
DX: R06.01 Orthopnea (principal); E11.9 Type 2 diabetes mellitus without complications; R60.9 Edema, unspecified
CPT/HCPCS: 80053; 85027; 83880

== ENCOUNTER 2022-10-24 14:14 | Outpatient (REF) | payer MEDICARE, SELFPAY ==
[2022-10-24 15:01] LABS: HCT 42.9 % (40.0-50.0); HGB 14.7 g/dL (13.5-17.5); MCH 31.5 pg (27.0-33.0); MCHC 34.3 % (32.0-36.0); MCV 92 fL (80-95); MPV 11.8 fL (8.0-11.0); RBC 4.67 10^6/uL (4.36-5.78); RDW 13.8 % (11.8-14.1); RDW-SD 46.8 fL; WBC 6.41 10^3/uL (4.4-10.8)
[2022-10-24 15:13] LABS: Platelet Count 98 10^3/uL (130-400)
[2022-10-24 15:46] LABS: Folate > 20.0 ng/mL (8.6-20.0); Vitamin B12 447 pg/mL (193-986)
[2022-10-25 10:02] LABS: HIV-1/2 Ag & Ab Screen Negative (Negative)
[2022-10-25 10:22] LABS: Hepatitis C Ab w Rflx HCV PCR Negative (Negative)
== END 2022-10-24 14:15 | disposition home or self-care (01) ==
LOC: NCHCN 14:14
PROVIDERS: PCP Nurse Practitioner Family; Visit Provider Nurse Practitioner Family
DX: R89.9 Unspecified abnormal finding in specimens from other organs, systems and tissues (principal); R60.9 Edema, unspecified; K74.60 Unspecified cirrhosis of liver
CPT/HCPCS: 85027; 86803; 87389; 82607; 82746

== ENCOUNTER 2022-11-15 10:35 | Outpatient (REF) | payer MEDICARE, SELFPAY ==
[2022-11-15 16:27] LABS: Anion Gap 8.6 mmol/L (3-11); BUN 33 mg/dL (7-18); CO2 24.4 mmol/L (21.0-32.0); CREATININE 1.4 mg/dL (0.70-1.30); Calcium 9.3 mg/dL (8.5-10.1); Chloride 102 mmol/L (98-107); Estimated GFR 55.09 (mL/min/1.73m2); Glucose 205 mg/dL (74-106); Potassium 4.7 mmol/L (3.5-5.1); Sodium 135 mmol/L (136-145)
== END 2022-11-15 10:36 | disposition home or self-care (01) ==
LOC: NCHCN 10:35
PROVIDERS: PCP Nurse Practitioner Family; Visit Provider Nurse Practitioner Family
DX: I10 Essential (primary) hypertension (principal); R79.89 Other specified abnormal findings of blood chemistry
CPT/HCPCS: 80048

== ENCOUNTER 2022-11-27 18:33 | Outpatient (REF) | payer MEDICARE, SELFPAY ==
[2022-11-27 17:19] LABS: HCT 42.5 % (40.0-50.0); HGB 14.1 g/dL (13.5-17.5); MCHC 33.2 % (32.0-36.0); MCV 93 fL (80-95); RBC 4.55 10^6/uL (4.36-5.78); RDW 13.3 % (11.8-14.1); RDW-SD 45.7 fL; WBC 4.94 10^3/uL (4.4-10.8)
== END 2022-11-27 18:34 | disposition home or self-care (01) ==
LOC: NCHCN 18:33
PROVIDERS: PCP Nurse Practitioner Family; Visit Provider Nurse Practitioner Family
DX: R89.8 Other abnormal findings in specimens from other organs, systems and tissues (principal); I10 Essential (primary) hypertension
CPT/HCPCS: 85027

== ENCOUNTER 2022-11-29 10:13 | Outpatient (REF) | payer MEDICARE, SELFPAY ==
[2022-11-29 15:57] LABS: HCT 42.7 % (40.0-50.0); HGB 14.4 g/dL (13.5-17.5); MCH 31.4 pg (27.0-33.0); MCHC 33.7 % (32.0-36.0); MCV 93 fL (80-95); RBC 4.58 10^6/uL (4.36-5.78); RDW 13.2 % (11.8-14.1); RDW-SD 45.3 fL; WBC 5.16 10^3/uL (4.4-10.8)
[2022-11-29 16:48] LABS: Platelet Count 78 10^3/uL (130-400)
== END 2022-11-29 10:14 | disposition home or self-care (01) ==
LOC: NCHCN 10:13
PROVIDERS: PCP Nurse Practitioner Family; Visit Provider Nurse Practitioner Family
DX: R89.8 Other abnormal findings in specimens from other organs, systems and tissues (principal); I10 Essential (primary) hypertension; D69.6 Thrombocytopenia, unspecified
CPT/HCPCS: 85027

== ENCOUNTER 2022-12-05 08:46 | Outpatient (REF) | payer MEDICARE, SELFPAY ==
[2022-12-05 17:39] LABS: HCT 44.3 % (40.0-50.0); HGB 14.8 g/dL (13.5-17.5); MCH 31.4 pg (27.0-33.0); MCHC 33.4 % (32.0-36.0); MCV 94 fL (80-95); RBC 4.72 10^6/uL (4.36-5.78); RDW 13.3 % (11.8-14.1); RDW-SD 45.7 fL; WBC 5.35 10^3/uL (4.4-10.8)
== END 2022-12-05 08:47 | disposition home or self-care (01) ==
LOC: NCHCN 08:46
PROVIDERS: PCP Nurse Practitioner Family; Visit Provider Nurse Practitioner Family
DX: D69.6 Thrombocytopenia, unspecified (principal); R89.8 Other abnormal findings in specimens from other organs, systems and tissues; I10 Essential (primary) hypertension
CPT/HCPCS: 85027

== ENCOUNTER 2022-12-06 04:14 | Outpatient (CLI) | payer MEDICARE, SELFPAY ==
[2022-12-06] MEDS: Albuterol HFA 18 GM 200 PUFF INH IH (11:51)
[2022-12-06] MEDS: Inhaler, Assist Device 1 EACH MC (11:51)
--- NOTE | 2022-12-06 16:57 | W.PFT ---
Date of service: 12/06/22 Time of Service: 09:55 Pulmonary Function Test Result Indications: Dyspnea on exertion Interpretation Spirometry: There is no airflow limitation. Spirometry appears restrictive. No significant bronchodilator response. Methacholine unable to be performed given low FEV1%. Lung Volumes: There is air trapping Diffusion Capacity: Normal diffusion Airway Pressure: Normal airways resistance Impression Normal pulmonary function testing. Unable to perform methacholine challenge due to low FEV1%. Restrictive spirometry is likely pseudo restriction from obesity. Clinical Correlation therefore is recommended.
== END 2022-12-06 04:15 | disposition home or self-care (01) ==
LOC: RT 04:14
PROVIDERS: PCP Nurse Practitioner Family; Visit Provider Nurse Practitioner Family
DX: R06.00 Dyspnea, unspecified (principal)
CPT/HCPCS: 94060; 94726; 94729

== ENCOUNTER 2023-05-09 08:40 | Outpatient (RCR) | payer MEDICARE, SELFPAY ==
--- NOTE | 2023-05-09 08:30 | HOLTER_ITS ---
APPROVED REPORT Conclusion This is a 48-hour Holter monitor ordered for bradycardia Rhythm throughout was sinus with an average heart rate of 53. Minimum was 40, maximum There were very rare isolated ventricular ectopic beats There were rare atrial premature beats There was no atrial fibrillation, no high-grade AV block, no pauses greater than 3 seconds
== END 2023-05-16 23:59 | disposition home or self-care (01) ==
LOC: CARDOPNVT 08:40
PROVIDERS: PCP Nurse Practitioner Family; Visit Provider Nurse Practitioner Family
DX: R00.2 Palpitations (principal)
CPT/HCPCS: 93227; 93225; 93226

== ENCOUNTER 2023-05-25 11:06 | Outpatient (REF) | payer MEDICARE, SELFPAY ==
--- NOTE | 2023-05-25 07:00 | PAPNONF_PTH ---
PATIENT: Gladys iNeves LOC: [facility] U#:[id number] AGE/SX: 68/M ROOM: RE05/25/[address]: CARMEN SHOOK : 1955 BED: DIS: 05/25/2023 SPEC #: [id number] RECD: 05/27/23 13:10 STATUS: IVORY REJung #: [id number] TUSHAR: 05/25/23 07:[address]: CARMEN SHOOK DEPT: [facility] Cytology RECD BY: Abimbola Elena ENTERED: 05/27/23 13:10 SP TYPE: KRISTAL GARCIA DR: Emily Silva Tissues: 1 - BODY FLUID CYTO(SPUTUM/URINE)[facility] Procedures: BODY FLUID CYTO(URINE/SPUTUM) Comments: [id number] (TV = 60 ml, 30 ml CYTOLYT ADDED) (REFRIGERATED)
== END 2023-05-25 11:07 | disposition home or self-care (01) ==
LOC: LBN 11:06
PROVIDERS: PCP Nurse Practitioner Family; Visit Provider Urology
DX: Z85.51 Personal history of malignant neoplasm of bladder (principal)
CPT/HCPCS: 88104

== ENCOUNTER 2023-10-14 13:05 | Outpatient (REF) | payer MEDICARE, SELFPAY ==
[2023-10-14 16:55] LABS: Vitamin B12 656 pg/mL (193-986)
[2023-10-15 09:52] LABS: Lyme Ab w Rflx to Lyme Confirm Negative (Negative)
[2023-10-16 23:35] LABS: Anaplasma phagocytophilum Negative (Negative); B. miyamotoi PCR Negative (Negative); Babesia divergens/MO-1 Negative (Negative); Babesia duncani Negative (Negative); Babesia microti Negative (Negative); Ehrlichia chaffeensis Negative (Negative); Ehrlichia ewingii/canis Negative (Negative); Ehrlichia muris eauclairensis Negative (Negative)
== END 2023-10-14 13:06 | disposition home or self-care (01) ==
LOC: NCHCN 13:05
PROVIDERS: PCP Nurse Practitioner Family; Visit Provider Nurse Practitioner Family
DX: R20.2 Paresthesia of skin (principal); Z11.8 Encounter for screening for other infectious and parasitic diseases
CPT/HCPCS: 87798; 82607; 86618

== ENCOUNTER 2024-05-22 16:03 | Outpatient (REF) | payer MEDICARE, SELFPAY ==
--- NOTE | 2024-05-22 08:10 | PAPNONF_PTH ---
PATIENT: Gladys Nieves LOC: [facility] U#:[id number] AGE/SX: 68/M ROOM: RE05/22/[address]: CARMEN SHOOK : 1955 BED: DIS: 05/22/2024 SPEC #: [id number] RECD: 05/22/24 17:59 STATUS: IVORY REQ #: [id number] TUSHAR: 05/22/24 08:[address]: CARMEN SHOOK DEPT: FORMERLY [facility], [facility]1983 Cytology RECD BY: Abimbola Elena ENTERED: 05/22/24 18:00 SP TYPE: KRISTAL GARCIA DR: Unknown,Unknown Tissues: 1 - BODY FLUID CYTO(SPUTUM/URINE)[facility] Procedures: BODY FLUID CYTO(URINE/SPUTUM) Comments: [id number] (TV = 30 ml, 30 ml CYTOLYT ADDED) (REFRIGERATED)
== END 2024-05-22 16:04 | disposition home or self-care (01) ==
LOC: LBN 16:03
PROVIDERS: Visit Provider Urology
DX: C67.9 Malignant neoplasm of bladder, unspecified (principal)
CPT/HCPCS: 88104

== ENCOUNTER 2024-08-03 12:17 | Outpatient (REF) | payer MEDICARE, SELFPAY ==
[2024-08-03 16:58] LABS: HGB 14.6 g/dL (13.5-17.5); MCH 31.9 pg (27.0-33.0); MCV 94 fL (80-95); RBC 4.58 10^6/uL (4.36-5.78); RDW 13.5 % (11.8-14.1); RDW-SD 46.9 fL; WBC 5.18 10^3/uL (4.4-10.8)
[2024-08-03 17:29] LABS: ALT 44 U/L (16-63); AST 33 U/L (15-37); Albumin 3.4 g/dL (3.4-5.0); Alkaline Phosphatase 137 U/L (46-116); Anion Gap 6.7 mmol/L (3-11); BUN 24 mg/dL (7-18); Bilirubin, Total 0.8 mg/dL (0.2-1.0); CO2 27.3 mmol/L (21.0-32.0); CREATININE 1.2 mg/dL (0.70-1.30); Calcium 9.2 mg/dL (8.5-10.1); Calculated LDL 61 mg/dL (<100); Chloride 103 mmol/L (98-107); Cholesterol 116 mg/dL (<200); Estimated GFR 65.46 (mL/min/1.73m2); Glucose 258 mg/dL (74-106); HDL Cholesterol 40 mg/dL (>or=40); Potassium 4.7 mmol/L (3.5-5.1); Sodium 137 mmol/L (136-145); Triglyceride 77 mg/dL (<150)
== END 2024-08-03 12:18 | disposition home or self-care (01) ==
LOC: NCHCN 12:17
PROVIDERS: PCP Nurse Practitioner Family; Visit Provider Nurse Practitioner Family
DX: E78.00 Pure hypercholesterolemia, unspecified (principal); E11.59 Type 2 diabetes mellitus with other circulatory complications; Z79.4 Long term (current) use of insulin; D69.6 Thrombocytopenia, unspecified
CPT/HCPCS: 80053; 80061; 85027; 83036

== ENCOUNTER 2025-02-01 10:57 | Outpatient (REF) | payer MEDICARE, SELFPAY | END 2025-02-01 10:58 | disposition home or self-care (01) | LOC: NCHCN 10:57 | PROVIDERS: PCP Nurse Practitioner Family; Visit Provider Nurse Practitioner Family | DX: E11.9 Type 2 diabetes mellitus without complications (principal) | CPT/HCPCS: 82043; 82570 ==